=== PATIENT | male | born 1975 | race Caucasian/White ===

== ENCOUNTER 2022-07-22 11:48 | Emergency (ER) | payer OTHER, SELFPAY ==
[2022-07-22 11:59] VITALS: BP 172/95; PULSE 70; O2SAT 98
== END 2022-07-22 12:20 | disposition left against medical advice (07) ==
LOC: EXPBETH 11:52
PROVIDERS: Emergency Provider Registered Nurse; PCP Internal Medicine
DX: Z53.21 Procedure and treatment not carried out due to patient leaving prior to being seen by health care provider (principal)
CPT/HCPCS: 99199